=== PATIENT | female | born 1985 ===

== ENCOUNTER 2016-08-03 22:00 | Emergency (ER) | payer MEDICAID ==
[~2016-08-03] VITALS: Ht 158.8 cm; Wt 72.7 kg
[2016-08-03 22:26] VITALS: BP 135/91; PULSE 114; RESP 16; O2SAT 97
--- NOTE | 2016-08-04 | ED.REPORT ---
HPI-General Illness Date of Service Aug 04, 2016 ED Provider: Dr. Green Pt is a 31 y/o female presenting to the ED to obtain a prescription for Suboxone. She smokes heroin and last used 12 hours ago. She has attempted to get into the outpatient Suboxone program ([facility] in [place]) but the waiting list is very long. She is not currently experiencing any significant withdrawal symptoms. She denies abscesses, vomiting, hallucinations. Nursing Notes Stated Complaint: SUBOXONE Chief Complaint: Substance Abuse Nursing Notes Reviewed: Yes Allergies: Coded Allergies: No Known Allergies (Unverified , 08/03/16) Scheduled Buprenorphine HCl/Naloxone HCl (Suboxone 8 mg-2 mg Sl Film) 1 Each Film 1 EACH SL BID General Time Seen by MD: 00:12 Chief Complaint Other (Suboxone) Hx Obtained From: Patient Arrived By: Walk-in Sudden in Onset?: Yes Onset Occurred: 9 - 12 hours ago Symptom Duration: Since onset Severity: Current: No pain currently Severity: Maximum: No pain Recent Healthcare: Previous diagnosis Similar Sx Previous: Yes Past Medical History Past Medical History Heroin abuse Past Surgical History None reported Smoking History Unknown if Ever Smoker Social History Heroin abuse, non-IV Ambulatory Status Independent Review of Systems Full Review of Systems GI: Denies: Vomiting Skin: Denies Rash Psychiatric: Denies: Hallucinations, auditory, Hallucinations, visual Complete sys rev & neg: except as marked. Physical Exam Vital Signs Vital Signs Date Time Temp Pulse Resp B/P Pulse Ox O2 Delivery O2 Flow Rate FiO2 08/04/16 00:50 36.1 105 16 131/90 97 Room Air 08/03/16 22:26 36.4 114 16 135/91 97 Room Air Initial VS: Reviewed, Vital signs abnormal Head / Eyes: Atraumatic, Normocephalic, PERRL ENT: Mucous membranes moist, Conjunctiva normal, No scleral icterus Neck: Supple, Full range of motion Respiratory: No respiratory distress Abdomen / GI: Soft Extremities: Vascular intact, Neuro intact, No swelling, No tenderness Skin: Warm, Dry, No cyanosis Neurologic: Alert, Oriented, Nonfocal Psychiatric: Mood/affect normal, Behavior normal, Normal thought content General/Constitutional: Awake, Alert, No acute distress, Cooperative, Not toxic appearing No significant withdrawals Interpretation & Diagnostics Lab Results Interpretation Test 08/03/16 23:47 Hold Urine Received (Received) Re-Eval/Medical Decision Med Decision/Clinical Course 31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 She is having trouble getting into MAT in [place]. She is currently going to [facility] for counseling but no Suboxone treatment as yet available. She presents here because she heard that [facility] does have available MAT slots. She used about 12 hours ago. She was given a prescription for morphine/naloxone 8/2 daily, #7, first dose to be taken tomorrow. She will schedule to see a provider at [facility] as soon as possible. Time of Eval: 00:15 Re-Evaluation/Progress Note: Pt rechecked. Informed pt of plan for treatment. Pt understands and agrees with plan for treatment. F/U instructions and RTER warnings given. All questions addressed. Counseled Regarding: Diagnosis, Need for follow-up, When/why to return to ED Discharge & Departure Primary Impression: Opioid dependence with withdrawal Disposition: Home Discharge Condition All VS Reviewed: Yes Condition: Stable Patient Instructions: Buprenorphine/Naloxone (By mouth) Additional Instructions: Buprenorphine/naloxone 8/2 film or tab, one sublingual twice a day, #14 prescription written. Call [facility] or [facility] for ongoing Suboxone treatment. [facility] Maricarmenibe Attestation Portions of this note were transcribed by Giovanny Lucero. I, Dr. Green personally performed the history, physical exam and medical decision-making; I reviewed and confirmed the accuracy of the information in the transcribed note. Signed by Tejas Dyer, 08/04/16 - 0030 copies to: [facility] Howard L MD Aug 04, 2016 00:00 GIOVANNY LUCERO Aug 04, 2016 00:17
[2016-08-04] MEDS ORDERED: BUPR1FIL3 SL (00:35)
[2016-08-04 00:50] VITALS: BP 131/90; PULSE 105; RESP 16; O2SAT 97
== END 2016-08-04 00:47 | disposition home or self-care (01) ==
LOC: SED 22:00
DX: F11.23 Opioid dependence with withdrawal (principal)

== ENCOUNTER 2016-08-17 20:56 | Emergency (ER) | payer MEDICAID ==
[~2016-08-17] VITALS: Ht 157.5 cm; Wt 72.7 kg
[~2016-08-17 20:56] MED LIST: BUPR1FIL3 SL
[2016-08-17 21:05] VITALS: BP 129/91; PULSE 93; RESP 20; O2SAT 99
--- NOTE | 2016-08-17 21:32 | ED.REPORT ---
HPI-General Illness Date of Service Aug 17, 2016 ED Provider: Efrain Green MD A 31 year old female with a history of heroin abuse presents to the ED requesting Suboxone. She was seen approximately two weeks ago and given one week of Suboxone taper. The pt was clean during this period, but was unable to make an appointment at a Suboxone clinic and therefore relapsed. She has not used heroin in nearly 24 hours. Nursing Notes Stated Complaint: SUBOXONE Chief Complaint: Substance Abuse Nursing Notes Reviewed: Yes Allergies: Coded Allergies: No Known Allergies (Unverified , 08/03/16) Scheduled Buprenorphine HCl/Naloxone HCl (Suboxone 8 mg-2 mg Sl Film) 1 Each Film 1 EACH SL BID Buprenorphine HCl/Naloxone HCl (Suboxone 8 mg-2 mg Sl Film) 1 Each Film 1 EACH SL BID General Time Seen by MD: 21:30 Chief Complaint Other (Medication request) Hx Obtained From: Patient Arrived By: Walk-in Sudden in Onset?: No Onset Occurred: More than a week ago... Symptom Duration: Since onset Recent Healthcare: Recent doctor visit Similar Sx Previous: Yes Past Medical History Past Medical History Heroin abuse Past Surgical History None reported Smoking History Unknown if Ever Smoker Social History Heroin abuse, non-IV Ambulatory Status Independent Review of Systems medication request Full Review of Systems Constitutional: Denies: Fever Respiratory: Denies: Non-productive cough Cardiovascular: Denies: Chest pain GI: Denies: Abdominal pain Musculoskeletal: Denies: Back pain Skin: Denies Rash Complete sys rev & neg: except as marked. Physical Exam Vital Signs Vital Signs Date Time Temp Pulse Resp B/P Pulse Ox O2 Delivery O2 Flow Rate FiO2 08/17/16 21:05 36.6 93 20 129/91 99 Room Air Initial VS: Reviewed, Vital signs abnormal General/Constitutional: Awake, Alert Head / Eyes: Atraumatic, Normocephalic, PERRL, EOMI ENT: Atraumatic, Airway patent, Mucous membranes moist Neck: Atraumatic, Supple, Full range of motion Respiratory / Chest: Atraumatic, Breath sounds NL, Breath sounds = bilat, No respiratory distress Cardiovascular: Heart rate NL, Regular rhythm, Heart sounds NL Abdomen: Atraumatic, Soft, Non-tender Back: Atraumatic, Full range of motion Upper Extremities Upper Extremity / MS: Atraumatic, Full range of motion Lower Extremity / Pelvis / MS: Atraumatic, Full range of motion Skin: Atraumatic, Color NL, No rash, Warm, Dry Neurologic: Oriented X3, Speech NL, No motor deficits, No sensory deficits Psychiatric: Affect NL, Mood NL Re-Eval/Medical Decision Med Decision/Clinical Course 31-year-old female who was seen in the emergency room about 10 days ago by me and giving a bridging prescription of Suboxone but was unable to get into the clinic for follow-up. She ran out and relapsed. Priority scheduling is now available for patient's referred from the emergency room. She will be seen at [facility] on Sunday, 4 days hence. She was given a prescription for 8 Suboxone to use during that time. Source of Hx: Old records Time of Eval: 21:30 Patient Status: Condition improved Re-Evaluation/Progress Note: Pt informed of the diagnosis and plan for discharge with follow up during the initial interview. The pt understands and agrees with the plan. All questions are addressed at this time. Counseled Regarding: Diagnosis, Need for follow-up, When/why to return to ED Discharge & Departure Primary Impression: Opioid dependence with withdrawal Disposition: Home Discharge Condition All VS Reviewed: Yes Condition: Stable Patient Instructions: Buprenorphine/Naloxone (By mouth) Additional Instructions: Buprenorphine/naloxone 8/2 tabs, one dissolved orally twice daily, #8 prescription written. Do not use this until 24 hours after your last opiate use. Call [phone] tomorrow to schedule an appointment to see me at [facility] on Sunday for Suboxone maintenance. Referrals: [facility] (PCP) MONSE Lazaro Attestation Portions of this note were transcribed by Nancie Wolf I, Dr. Green personally performed the history, physical exam and medical decision-making; I reviewed and confirmed the accuracy of the information in the transcribed note. Signed by: Tejas Yarbrough, 08/17/16 and 22:08. copies to: [facility] ; Efrain Lyle MD Aug 17, 2016 21:32 NANCIE WOLF Aug 17, 2016 21:57
[2016-08-17] MEDS ORDERED: BUPR1FIL3 SL (22:16)
== END 2016-08-17 22:26 | disposition home or self-care (01) ==
LOC: SED 20:56
DX: F11.23 Opioid dependence with withdrawal (principal)